=== PATIENT | female | born 1940 | race Caucasian/White ===

== ENCOUNTER 2020-04-23 13:25 | Emergency (ER) | payer MEDICARE, OTHER ==
[2020-04-23 19:33] LABS: HEMOGLOBIN 11.9 gm/dl (12.3-15.3); RED BLOOD COUNT 3.51 M/UL (4.00-5.10)
== END 2020-04-23 23:28 | disposition home or self-care (01) ==
LOC: ER1 13:25
PROVIDERS: Physician Assistant
DX: R42 Dizziness and giddiness (principal); R19.7 Diarrhea, unspecified; K59.00 Constipation, unspecified; I10 Essential (primary) hypertension; G20 Parkinson's disease; G30.9 Alzheimer's disease, unspecified; F02.80 Dementia in other diseases classified elsewhere, unspecified severity, without behavioral disturbance, psychotic disturbance, mood disturbance, and anxiety; Z20.822 Contact with and (suspected) exposure to COVID-19; Z90.710 Acquired absence of both cervix and uterus; Z79.899 Other long term (current) drug therapy
CPT/HCPCS: 0240U; 70496; 70498; 71045; 80053; 81001; 83690; 85025; 99284; Q9967

== ENCOUNTER → 2020-09-24 | Outpatient (CLI) | payer MEDICARE, OTHER | LOC: EMI 09:02 | DX: I63.9 Cerebral infarction, unspecified (principal) | CPT/HCPCS: 70551 ==